=== PATIENT | male | born 1980 | race Caucasian/White ===

== ENCOUNTER 2024-01-25 20:56 | Emergency (ER) | payer BC, SELFPAY ==
[2024-01-25 21:10] VITALS: BP 160/98; BMI 28.7
[2024-01-25 21:34] LABS: % Basophils 0.4 % (0-2); % Eosinophils 2.4 % (0-6); % Immature Granulocytes 0.6 % (0-0.5); % Lymphocytes 13.7 % (20.5-51.1); % Monocytes 7.6 % (1.7-9.3); % Neutrophils 75.3 % (42.2-75.2); Absolute Basophils 0.1 10^3/uL (0-0.2); Absolute Eosinophils 0.4 10^3/uL (0-0.7); Absolute Immature Granulocytes 0.1 10^3/uL (0-0.05); Absolute Lymphocytes 2.2 10^3/uL (1.2-3.4); Absolute Monocytes 1.2 10^3/uL (0.1-0.6); Hematocrit 41.7 % (39.0-52.0); Hemoglobin 14.7 g/dL (13.0-18.0); Mean Corp Hgb Conc. 35.3 g/dL (33.0-37.0); Mean Corpuscular Hgb 30.8 pg (27.0-31.0); Mean Corpuscular Volume 87.4 fL (80.0-94.0); Mean Platelet Volume 8.8 fL (7.4-10.4); Nucleated Red Blood Cells % 0 % (-); Platelet Count 341 10^3/uL (130-400); Red Blood Cell Count 4.77 10^6/uL (4.70-6.10); Red Cell Dist. Width 12.8 % (11.5-14.5)
[2024-01-25 21:35] LABS: Urine Albumin Negative (Neg - Trace); Urine Bilirubin Negative (Negative); Urine Character Clear (Clear); Urine Color Yellow; Urine Glucose Negative (Negative); Urine Ketone Trace (Negative); Urine Leukocyte Negative (Negative); Urine Nitrite Negative (Negative); Urine Occult Blood Negative (Negative); Urine Urobilinogen Negative (Neg - 1+)
[2024-01-25 22:03] LABS: ALT (SGPT) 27 U/L (0-50); AST (SGOT) 23 U/L (17-59); Albumin 4.4 g/dl (3.5-5.0); Alkaline Phosphatase 53 U/L (38-126); Blood Urea Nitrogen 17 mg/dl (9-20); Calcium 9.3 mg/dl (8.4-10.2); Carbon Dioxide 26 mmol/L (22-30); Chloride 105 mmol/L (98-107); Estimated Creatinine Clearance 99 ml/min; Glucose 104 mg/dl (70-99); Lipase 78 U/L (23-300); Potassium 4.3 mmol/L (3.5-5.1); Sodium 136 mmol/L (135-145); Total Bilirubin 0.4 mg/dl (0.2-1.3); Total Protein 7.2 g/dl (6.3-8.2); eGFR > 60.00
--- NOTE | 2024-01-25 22:06 | ED.GENMED ---
History of Present Illness
General
Chief Complaint: Abdominal Pain
Time Seen by Provider: 01/25/24 21:59
Travel History
Have you had any contact with someone who has COVID-19?: No
Do you have any symptoms of coronavirus? Fever > 100 degrees, chills, cough, shortness of breath, sore throat, loss of taste or smell, muscle aches, or headache?: No
History of Present Illness
History of Present Illness:
43-year-old male with no significant past medical history presents to the emergency department for evaluation of generalized abdominal pain beginning 2 days ago. Apparently he is 1 week out of having a 'GI bug' with vomiting and diarrhea. Those
symptoms lasted 1 to 2 days before resolving. Denies any current fevers but does have chills. No prior abdominal surgeries. No ill contacts at home.
Review of Systems
Review of Systems
Allergies reviewed?: Yes
All Other Systems: ROS reviewed and negative except as documented in HPI and ROS
Phy Exam
Physical Exam
Physical Exam:
GEN: Ill-appearing, no immediate distress
Eyes: PERRLA, EOMs intact, no scleral icterus
HENT: NCAT, oral mucosa moist
Lungs: CTAB, no wheezes, rales, rhonchi, normal chest wall excursion
Cardiac: RRR, no M/R/G, no peripheral edema. Radial pulses 2+ bilat
Abdomen: Soft, mild tenderness to the suprapubic and left lower quadrant, no rigidity or peritoneal signs
Neuro: AO x 3
MSK: No gross deformity or ecchymosis. No edema. No digital clubbing
Skin: No rashes, petechiae. Normal color, no pallor or jaundice.
Psych: Calm, cooperative, proper hygiene
Course
Orders/Labs/Results
Orders:
Orders
01/25/24 21:23
Complete Blood Count/With Diff Urgent
Comprehensive Metabolic Panel Urgent
Lipase Urgent
Urinalysis Reflex To Culture Urgent
Date Specimen was Collected: 01/25/24
Time Specimen was Collected: 21:10
01/25/24 22:14
CT Abd/Pel (IV only)-DH only Urgent
Comment:
Reason For Exam: lower abd pain, fever
01/25/24 22:50
0.9% Sodium Chloride 1000 ml [Nss] 1,000 ml IV BOLUS
Ketorolac [Toradol] 15 mg IV NOW STA
01/25/24 23:22
Lactic Acid Q4H
Comment: CANCEL 2nd LACTIC ACID IF 1st LACTIC ACID IS LESS THAN 2
Blood Culture Q30M
PHILIP Source: Blood/Venous
Specimen Description:
01/25/24 23:37
Blood Culture Q30M
PHILIP Source: Blood/Venous
Specimen Description:
01/26/24 00:17
Piperacillin/Tazo 3.375 Gram [Zosyn] 3.375 gram in 50 ml IV NOW
01/26/24 00:57
Ampicillin/Sulbactam 3 G [Unasyn] 3 gm 0.9% Sodium Chloride 100 ml [Nss] 100 ml IV NOW
Abnormal Lab Results
01/25/24
21:23
WBC 16.0 H 10^3/uL
(4.8-10.8)
Abs Immat Gran (auto) 0.1 H 10^3/uL
(0-0.05)
Absolute Neuts (auto) 12.0 H 10^3/uL
(1.4-6.5)
Absolute Monos (auto) 1.2 H 10^3/uL
(0.1-0.6)
Immature Gran % 0.6 H %
(0-0.5)
Neutrophils % 75.3 H %
(42.2-75.2)
Lymphocytes % 13.7 L %
(20.5-51.1)
Glucose 104 H mg/dl
(70-99)
Urine Ketones Trace A
(Negative)
01/25/24 21:23
01/25/24 21:23
Vital Signs
Initial and Last Documented VS:
Initial Vital Signs
Temp Pulse Resp BP Pulse Ox
98.6 F 94 16 160/98 100
01/25/24 21:10 01/25/24 21:10 01/25/24 21:10 01/25/24 21:10 01/25/24 21:10
Last Documented Vital Signs
Temp Pulse Resp BP Pulse Ox
98.6 F 94 16 160/98 100
01/25/24 21:10 01/25/24 21:10 01/25/24 21:10 01/25/24 21:10 01/25/24 21:10
MDM/Problems Addressed
MDM/Problems Addressed:
Patient's overall appearance improved after IV fluids and pain medication. He does have leukocytosis however no fever. Reexamination after CT scan shows no acute change, no rigidity or peritoneal signs. Patient is tolerating p.o. fluids without
difficulty. Discussed admission versus discharge with the patient, he is comfortable discharge home, initial dose of IV Unasyn given in the emergency department will discharge on a 10-day course of Augmentin, importance of clear liquids for the
next 48 hours reiterated to the patient
*Critical Care Note
Total Time (30-74mins, 75-104mins- exclusive of procedures): Not Applicable
ED Attending Note
-
Portions of this chart may have been created with voice recognition software.� Occasional wrong word or��sound alike� substitutions may have occurred due to the inherent limitations of voice recognition software.
Discharge Plan
Departure
Patient Disposition: Home (Routine Discharge)
Date of Disposition: 01/26/24
Time of Disposition: 00:20
Patient with high blood pressure during this ER visit?: No
Discharge Problem:
Acute diverticulitis
Instructions: Clear Liquid Diet, Diverticulitis (DC)
Prescriptions:
New
amoxicillin-pot clavulanate 875-125 mg tablet
1 tab PO BID 10 Days Qty: 20 0RF
Referrals:
UNKNOWN - PT DOES,NOT KNOW [Family Provider] -
Activity Restrictions/Additional Instructions:
Clear liquid only diet is imperative for first 48 hours
Interventions
Interventions:
*Risk Screen - Suicide Last Done: 01/25/24 21:10
*Neglect/Abuse Screening Last Done: 01/25/24 21:10
ED- Fall Risk Assessment Last Done: 01/25/24 21:10
TQ-Vvxxju-Njfckvarpb Assessment Last Done: 01/25/24 22:16
Discharge Date and Time
Print Language: ANDORRAN
[2024-01-25] MEDS: NSS 1000 IV (23:36)
[2024-01-25] MEDS: TORADOL 15 MG IV (23:36)
[2024-01-26 01:00] VITALS: BP 134/78
[2024-01-26] MEDS: UNASYN IV (01:08)
== END 2024-01-26 03:00 | disposition home or self-care (01) ==
LOC: EMR 20:56
PROVIDERS: Physician Assistant; EMERGENCY PHYSICIAN Emergency Medicine
DX: K57.92 Diverticulitis of intestine, part unspecified, without perforation or abscess without bleeding (principal)
CPT/HCPCS: 99284; 96374; 96365; 74177; 80053; 81003; 83605; 83690; 85025; 87040; Q9967

== ENCOUNTER 2025-05-02 13:49 | Emergency (ER) | payer BC, SELFPAY ==
[2025-05-02 13:51] VITALS: BP 157/98
[2025-05-02 15:09] VITALS: BMI 31.9
[2025-05-02 15:18] VITALS: BP 155/94
[2025-05-02 15:24] LABS: Hematocrit 42.7 % (39.0-52.0); Hemoglobin 15.2 g/dL (13.0-18.0); Mean Corp Hgb Conc. 35.6 g/dL (33.0-37.0); Mean Corpuscular Volume 87.0 fL (80.0-94.0); Nucleated Red Blood Cells % 0 % (-); Platelet Count 270 10^3/uL (130-400); Red Cell Dist. Width 12.6 % (11.5-14.5)
[2025-05-02 15:37] LABS: ALT (SGPT) 29 U/L (0-50); AST (SGOT) 23 U/L (17-59); Albumin 4.6 g/dl (3.5-5.0); Alkaline Phosphatase 41 U/L (38-126); Blood Urea Nitrogen 14 mg/dl (9-20); Calcium 9.7 mg/dl (8.4-10.2); Carbon Dioxide 25 mmol/L (22-30); Chloride 109 mmol/L (98-107); Estimated Creatinine Clearance 122 ml/min; Glucose 90 mg/dl (70-99); Magnesium 2.2 mg/dl (1.6-2.3); Potassium 4.2 mmol/L (3.5-5.1); Sodium 139 mmol/L (135-145); Total Protein 7.7 g/dl (6.3-8.2); eGFR > 60.00
--- NOTE | 2025-05-02 15:47 | ED.GENMED ---
History of Present Illness
<Shea Noel PA-C - Last Filed: 05/03/25 09:27>
General
Chief Complaint: Fainting Sensation
Source: patient
Exam Limitations: none
Time Seen by Provider: 05/02/25 14:34
Nursing documentation reviewed up to this point in time: agreed with
History of Present Illness
History of Present Illness:
see MDM
Review of Systems
<Shea Noel PA-C - Last Filed: 05/03/25 09:27>
Review of Systems
Allergies reviewed?: Yes
All Other Systems: Not applicable
Phy Exam
<Kyra Marcelino PA-C - Last Filed: 05/03/25 16:25>
Physical Exam
Physical Exam:
.
Course
<Shea Noel PA-C - Last Filed: 05/03/25 09:27>
Orders/Labs/Results
Orders:
Orders
05/02/25 13:53
EKG [Electrocardiogram (*1)] Urgent
Reason for Study: Fatigue / Weakness
EKG- Treatment ONCE
05/02/25 15:00
CT Chest PE Study Urgent
Comment:
Reason For Exam: tachcyardia, anxiety, near syncope
Cardiac Monitoring- Treatment ONCE
05/02/25 15:15
Complete Blood Count/With Diff Urgent
Comprehensive Metabolic Panel Urgent
Free T4 Urgent
Comment: ADD ON
Lipase Urgent
Magnesium Urgent
TSH Urgent
Troponin I Urgent
05/02/25 16:06
EKG- Treatment ONCE
05/02/25 16:27
Add On- LAB Urgent
Tests Added?: free T4
05/02/25 17:50
Troponin I Urgent
05/02/25 18:00
Electrocardiogram (*1) Urgent
Reason for Study: Chest Pain
Abnormal Lab Results
05/02/25
15:15
Absolute Neuts (auto) 8.1 H 10^3/uL
(1.4-6.5)
Absolute Monos (auto) 0.9 H 10^3/uL
(0.1-0.6)
Lymphocytes % 14.1 L %
(20.5-51.1)
Chloride 109 H mmol/L
(98-107)
TSH 0.07 L uIU/ml
(0.47-4.68)
05/02/25 15:15
05/02/25 15:15
Vital Signs
Initial and Last Documented VS:
Initial Vital Signs
Temp Pulse Resp BP Pulse Ox
98 F 76 16 157/98 99
05/02/25 13:51 05/02/25 13:51 05/02/25 13:51 05/02/25 13:51 05/02/25 13:51
Last Documented Vital Signs
Temp Pulse Resp BP Pulse Ox
98 F 81 24 135/92 98
05/02/25 13:51 05/02/25 18:02 05/02/25 15:45 05/02/25 18:43 05/02/25 19:30
Prachilt;Kyra Marcelino PA-C - Last Filed: 05/03/25 16:25>
Orders/Labs/Results
Orders:
Orders
05/02/25 13:53
EKG [Electrocardiogram (*1)] Urgent
Reason for Study: Fatigue / Weakness
EKG- Treatment ONCE
05/02/25 15:00
CT Chest PE Study Urgent
Comment:
Reason For Exam: tachcyardia, anxiety, near syncope
Cardiac Monitoring- Treatment ONCE
05/02/25 15:15
Complete Blood Count/With Diff Urgent
Comprehensive Metabolic Panel Urgent
Free T4 Urgent
Comment: ADD ON
Lipase Urgent
Magnesium Urgent
TSH Urgent
Troponin I Urgent
05/02/25 16:06
EKG- Treatment ONCE
05/02/25 16:27
Add On- LAB Urgent
Tests Added?: free T4
05/02/25 17:50
Troponin I Urgent
05/02/25 18:00
Electrocardiogram (*1) Urgent
Reason for Study: Chest Pain
Abnormal Lab Results
05/02/25
15:15
Absolute Neuts (auto) 8.1 H 10^3/uL
(1.4-6.5)
Absolute Monos (auto) 0.9 H 10^3/uL
(0.1-0.6)
Lymphocytes % 14.1 L %
(20.5-51.1)
Chloride 109 H mmol/L
(98-107)
TSH 0.07 L uIU/ml
(0.47-4.68)
05/02/25 15:15
05/02/25 15:15
Vital Signs
Initial and Last Documented VS:
Initial Vital Signs
Temp Pulse Resp BP Pulse Ox
98 F 76 16 157/98 99
05/02/25 13:51 05/02/25 13:51 05/02/25 13:51 05/02/25 13:51 05/02/25 13:51
Last Documented Vital Signs
Temp Pulse Resp BP Pulse Ox
98 F 81 24 135/92 98
05/02/25 13:51 05/02/25 18:02 05/02/25 15:45 05/02/25 18:43 05/02/25 19:30
<Shea Noel PA-C - Last Filed: 05/03/25 09:27>
MDM/Problems Addressed
Differential Diagnosis Includes:
see MDM
MDM/Problems Addressed:
Note:
CHIEF COMPLAINT(S)
Feeling unwell with symptoms of nervousness and palpitations.
HISTORY OF PRESENT ILLNESS
The patient, a male with a history of diverticulitis and a past kidney stone, presented with sudden onset symptoms feeling lightheaded after having coffee. While sitting at home shortly after noon, the patient experienced palms sweating,
nervousness, and anxiety. These symptoms were accompanied by shaky hands and the fear of potentially passing out, leading him to seek medical attention. The episode lasted approximately 10 minutes. The patient noted experiencing a similar episode
the previous week, however, without a noticeably fast heart rate at that time. There was no chest pain, shortness of breath, nausea, or sweating elsewhere on the body noted. The patient denies any relevant chronic medication use and reports feeling
better upon arrival at the hospital.
he drives a lot for work
has h/o dad and brother (40) who had MIs
pt is smoker, uses 5 beers daily
PAST MEDICAL AND SURGICAL HISTORY
- Diverticulitis
- Kidney stone
SOCIAL DETERMINANTS AFFECTING HEALTH
The patient reported stress related to work and family issues.
FAMILY HISTORY
The patients brother experienced a heart attack at a young age (48 years) and had a history of high blood pressure.
SOCIAL HISTORY
- Alcohol: Consumes beer regularly, typically about 5 beers, each 12 ounces, a day. No withdrawal symptoms reported.
- Smoking: Occasional use of cigarettes and nicotine use.
- Vaping and marijuana use denied.
REVIEW OF SYSTEMS
- Cardiovascular: Palpitations, no chest pain reported.
- Respiratory: No shortness of breath noted.
- Neurological: No headaches or dizziness noted.
- Gastrointestinal: No nausea or discomfort reported.
PHYSICAL EXAM
- Cardiovascular: Heart monitoring indicated no current abnormal heart rhythms.
- Nursing notes reviewed and vital signs reviewed.
GENERAL: Alert , in no apparent distress, seems anxious
EYE: pupils equal and reactive
NECK: Supple
ENT: o/p clr, mmm.
CARDIAC: Regular rate and rhythm ., No murmur, no tachycardia
LUNGS: Clear breath sounds bilaterally, no acute respiratory distress, no wheezes/rales/rhonchi
ABDOMEN: Soft, without focal tenderness, no r/g, no cvat, normal bowel sounds
NEUROLOGICAL: Alert and oriented, no focal neuro deficits
SKIN: Warm and dry, skin intact.
MUSCULOSKELETAL: No edema, well perfused. neg maik's sign
PSYCH: Normal and appropriate interaction.
PLAN
- Perform blood work to measure cardiac enzyme levels (troponin) now and in a few hours to assess for potential cardiac events.
- Keep the patient on a heart monitor to observe for any recurrent arrhythmia or abnormal heart rhythm.
- Offer medication for anxiety should the patient feel heightened anxiety during observation.
DIFFERENTIAL DIAGNOSIS
The Differential Diagnosis includes, in no particular order and is not limited to:
1. Atrial fibrillation or other cardiac arrhythmias
2. Anxiety or panic disorder
3. Hyperthyroidism
4. Substance-induced tachycardia (possibly from caffeine)
5. Hypertensive crisis
6. Cardiac ischemia or myocardial infarction
7. Pheochromocytoma
8. Electrolyte imbalance
9. Vasovagal syncope
10. Generalized anxiety disorder
<Shea Noel PA-C - Last Filed: 05/03/25 09:27>
*Pulse Oximetry
SaO2: 97
Oxygen Mode of Delivery: Room air
<Kyra Marcelino PA-C - Last Filed: 05/03/25 16:25>
*Pulse Oximetry
Patient hypoxic: no (99%)
*Critical Care Note
Total Time (30-74mins, 75-104mins- exclusive of procedures): Not Applicable
<Kyra Marcelino PA-C - Last Filed: 05/03/25 16:25>
Update Note
Update Note:
I assumed care of patient awaiting CT results as well as repeat troponin/EKG. CT negative for pulmonary embolism. TSH did return low at 0.07 and free T4 was added which is within normal limits. Repeat EKG and troponin remain normal. He is
asymptomatic on reassessment and has not had any recurrent palpitations since arrival to the ED. Patient stable for discharge. He does not currently have a PCP and was given contact information for the family medicine residency clinic. ED return
precautions reviewed.
ED Attending Note
<Shea Noel PA-C - Last Filed: 05/03/25 09:27>
-
Portions of this chart may have been created with voice recognition software.� Occasional wrong word or��sound alike� substitutions may have occurred due to the inherent limitations of voice recognition software.
Discharge Plan
Departure
Patient Disposition: Home (Routine Discharge)
Date of Disposition: 05/02/25
Time of Disposition: 18:43
Patient with high blood pressure during this ER visit?: Yes
Discharge Problem:
Palpitations, Near syncope
Instructions: Near Fainting (DC)
Prescriptions:
No Action
amoxicillin-pot clavulanate 875-125 mg tablet
1 tab PO BID 10 Days Qty: 20 0RF
Referrals:
[facility] [Provider Group]
NONE,* [Family Provider, Internal Medicine]
Activity Restrictions/Additional Instructions:
Please call on Sunday to schedule a follow-up with a family doctor. Return to the ER with any new or worsening symptoms.
Interventions
Interventions:
*Risk Screen - Suicide Last Done: 05/02/25 13:51
*General Assessment Last Done: 05/02/25 15:18
*Neglect/Abuse Screening Last Done: 05/02/25 13:51
*ED- Fall Risk Assessment Last Done: 05/02/25 15:18
*ED COVID-19 Vaccine History Last Done: 05/02/25 15:18
*Nursing Disposition Last Done: 05/02/25 19:54
ED- Cardiac Assessment Last Done: 05/02/25 15:20
ED- Neurological Assessment Last Done: 05/02/25 17:57
Discharge Date and Time
Discharge Date/Time: 05/02/25 19:55
Print Language: LITHUANIAN
[2025-05-02 15:49] LABS: Troponin I < 0.012 ng/ml
[2025-05-02 15:53] LABS: Lipase 54 U/L (23-300)
[2025-05-02 16:20] LABS: TSH 0.07 uIU/ml (0.47-4.68)
[2025-05-02 18:20] LABS: Troponin I < 0.012 ng/ml
[2025-05-02 18:43] VITALS: BP 135/92
== END 2025-05-02 19:55 | disposition home or self-care (01) ==
LOC: EMR 13:49
PROVIDERS: Physician Assistant; EMERGENCY PHYSICIAN Emergency Medicine
DX: R00.2 Palpitations (principal); R55 Syncope and collapse; F17.200 Nicotine dependence, unspecified, uncomplicated; R00.0 Tachycardia, unspecified
CPT/HCPCS: 99284; 71275; 80053; 83690; 83735; 84439; 84443; 84484; 85025; 93005; Q9967